=== PATIENT | male | born 1980 | race Caucasian/White ===

== ENCOUNTER 2018-02-25 12:42 | Inpatient (IN) | payer BC ==
[2018-02-25 14:10] VITALS: BMI 25.1
--- NOTE | 2018-02-25 15:32 | HP ---
CIWA Score Nausea/Vomitin-Mild Nausea/No Vomiting Muscle Tremors: 3 Anxiety: 2 Agitation: 0-Normal Activity Paroxysmal Sweats: 2 Orientation: 0-Oriented Tacttile Disturbances: 3-Moderate Itch/Numb/Burn Auditory Disturbances: 0-None Visual Disturbances: 0-None Headache: 3-Moderate CIWA-Ar Total Score: 14 - Admission Criteria OASAS Guidelines: Admission for Medically Managed Detox: Requires at least one of the followin. CIWA greater than 12 2. Seizures within the past 24 hours 3. Delirium tremens within the past 24 hours 4. Hallucinations within the past 24 hours 5. Acute intervention needed for co occurring medical disorder 6. Acute intervention needed for co occurring psychiatric disorder 7. Severe withdrawal that cannot be handled at a lower level of care (continued vomiting, continued diarrhea, abnormal vital signs) requiring intravenous medication and/or fluids 8. Admission ROS S - [facility] Chief Complaint: ETOH WITHDRAWAL SX/COCAINE DEPENDENCE. History of Present Illness: PATIENT PRESENTS FIRST ADMISSION TO [facility]. PATIENT LAST DETOX WAS A FEW MONTHS AGO WHILE INCARCERATED. PATIENT STARTED DRINKING AT AGE 13, DRINKS 2 PINTS DAILY AND LAST DRINK THIS MORNING. STARTED SMOKING CRACK/COCAINE AT AGE 27 , SMOKES 4 GRAMS DAILY, LAST TIME HE SMOKED WAS THIS MORNING. +MARIJUANA USE. PATIENT DENIES SEIZURES, FALLS, BLACKOUTS. PMH INCLUDES TOBACCO USE. DENIES DEPRESSION, ANXIETY, BIPOLAR DISORDER, SCHIZOHRENIA AND ANY SIGNIFICANT PMH. PATIENT DENIES SI/HI AND SUICIDE ATTEMPTS. - Ebola screening Have you traveled outside of the country in the last 21 days: No Have you had contact with anyone from an Ebola affected area: No Have you been sick,other than usual withdrawal symptoms: No Do you have a fever: No - Review of Systems Constitutional: Chills, Night Sweats, Changes in sleep EENT: reports: No Symptoms Reported Respiratory: reports: No Symptoms reported Cardiac: reports: No Symptoms Reported GI: reports: Nausea, Poor Fluid Intake, Abdominal cramping : reports: No Symptoms Reported Musculoskeletal: reports: No Symptoms Reported Integumentary: reports: Erythema, Flushing, Sweating Neuro: reports: Headache, Numbness, Tingling, Tremors Endocrine: reports: No Symptoms Reported Hematology: reports: Easy Bleeding Psychiatric: reports: Orientated x3 Patient History - Patient Medical History Hx Anemia: No Hx Asthma: No Hx Chronic Obstructive Pulmonary Disease (COPD): No Hx Cancer: No Hx Cardiac Disorders: No Hx Congestive Heart Failure: No Hx Hypertension: No Hx Hypercholesterolemia: No Hx Pacemaker: No HX Cerebrovascular Accident: No Hx Seizures: No Hx Dementia: No Hx Diabetes: No Hx Gastrointestinal Disorders: No Hx Liver Disease: No Hx Genitourinary Disorders: No Hx Sexually Transmitted Disorders: No Hx Renal Disease (ESRD): No Hx Thyroid Disease: No Hx Human Immunodeficiency Virus (HIV): No (LAST TEST NEGATIVE, 2017) Hx Hepatitis C: No Hx Depression: No Hx Suicide Attempt: No Hx Bipolar Disorder: No Hx Schizophrenia: No - Patient Surgical History Past Surgical History: No Anesthesia Reaction: No - PPD History Previous Implant?: Yes Documented Results: Positive w/o proof PPD to be Administered?: No - Smoking Cessation Smoking history: Current every day smoker Have you smoked in the past 12 months: Yes Aproximately how many cigarettes per day: 20 Hx Chewing Tobacco Use: No Initiated information on smoking cessation: Yes 'Breaking Loose' booklet given: 02/25/18 - Substance & Tx. History Hx Alcohol Use: Yes Hx Substance Use: Yes Substance Use Type: Alcohol, Cocaine, Marijuana - Substances Abused Alcohol Route: Oral Frequency: Daily Amount used: 2 PINTS Age of first use: 13 Date of Last Use: 02/25/18 Cocaine Route: Inhalation Frequency: Daily Amount used: 4 GRAMS Age of first use: 27 Date of Last Use: 02/25/18 Family Disease History - Family Disease History Family History: Unable to Obtain Admission Physical Exam BHS - Vital Signs Vital Signs: Vital Signs - 24 hr 02/25/18 14:00 Temperature 97.7 F Pulse Rate 84 Respiratory 20 Rate Blood Pressure 114/67 - Physical General Appearance: Yes: Nourished, Appropriately Dressed, Disheveled, Tremorous , Sweating HEENTM: Yes: EOMI, Hearing grossly Normal, Normocephalic, Normal Voice, OSMIN, Pharynx Normal Respiratory: Yes: Chest Non-Tender, Lungs Clear, Normal Breath Sounds, No Respiratory Distress, No Accessory Muscle Use Neck: Yes: No masses,lesions,Nodules, Supple, Trachea in good position Breast: Yes: Breast Exam Deferred Cardiology: Yes: Regular Rhythm, Regular Rate, S1, S2 Abdominal: Yes: Normal Bowel Sounds, Non Tender, Soft Genitourinary: Yes: Within Normal Limits Back: Yes: Normal Inspection Musculoskeletal: Yes: full range of Motion, Gait Steady Extremities: Yes: Normal Inspection, Normal Range of Motion, Non-Tender, Tremors 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 NML intact, Fully Oriented, Alert, Motor Strength 5/5, Normal Mood/Affect, Normal Response Integumentary: Yes: Warm, Erythema, Moist Lymphatic: Yes: Within Normal Limits - Diagnostic (1) Alcohol dependence with uncomplicated withdrawal Current Visit: Yes Status: Acute (2) Tobacco use Current Visit: Yes Status: Chronic (3) Cocaine dependence Current Visit: Yes Status: Chronic Qualifiers: Substance use status: uncomplicated Qualified Code(s): F14.20 - Cocaine dependence, uncomplicated Cleared for Admission [facility] - Detox or Rehab [facility] Level of Care: Medically Managed Detox Regimen/Protocol: Librium [facility] Breath Alcohol Content Breath Alcohol Content: 0 Urine Drug Screen - Results Drug Screen Negative: No Urine Drug Screen Results: THC-Marijuana, JONI-Cocaine, BAR-Barbiturates
[2018-02-25] MEDS ORDERED: P-EPHED 60MG/TRIPROLIDI 2.5MG TABLET PO PRN (15:43)
[2018-02-25] MEDS ORDERED: IBUPROFEN 400 MG TABLET (FP) PO PRN (15:43)
[2018-02-25] MEDS ORDERED: MAGNESIUM CITRATE 300 ML BOTTLE PO PRN (15:43)
[2018-02-25] MEDS ORDERED: LOPERAMIDE HCL 2 MG CAPSULE PO PRN (15:43)
[2018-02-25] MEDS ORDERED: ACETAMINOPHEN 325 MG TABLET (FP) PO PRN (15:43)
[2018-02-25] MEDS ORDERED: hydrOXYzine PAMOATE 50 MG CAPSULE (FP) PO PRN (15:43)
[2018-02-25] MEDS ORDERED: MENTHOL/PHENOL 1 EACH UD MM PRN (15:43)
[2018-02-25] MEDS ORDERED: guaiFENesin/D-METHORPHAN HB 10 ML UNIT-DOSE CUPS PO PRN (15:43)
[2018-02-25] MEDS ORDERED: MAG HYDROX/AL HYDROX/SIMETH 30 ML UNIT-DOSE CUP PO PRN (15:43)
[2018-02-25] MEDS ORDERED: MAGNESIUM HYDROX 2400MG/30ML ORAL SUSPENSION 30 ML CUP PO PRN (15:43)
[2018-02-25] MEDS ORDERED: NICOTINE POLACRILEX 2 MG GUM BC PRN (15:43)
[2018-02-25] MEDS ORDERED: chlordiazePOXIDE HCL 25 MG CAPSULE PO PRN (15:46)
[2018-02-25] MEDS ORDERED: chlordiazePOXIDE HCL 25 MG CAPSULE ONE (19:28)
[2018-02-25] MEDS: chlordiazePOXIDE HCL 25 MG CAPSULE PO SCH (19:28)
[2018-02-25] MEDS ORDERED: MELATONIN 5 MG TABLETS PO PRN (22:00)
[2018-02-25] MEDS: THIAMINE HCL 100 MG TABLET (FP) PO SCH (22:52)
[2018-02-26] MEDS: chlordiazePOXIDE HCL 25 MG CAPSULE PO SCH ×5 (00:10→22:15)
[2018-02-26 10:47] LABS: HEMATOCRIT 43.1 % (35.4-49); MCH 33.2 pg (25.7-33.7); MCHC 32.5 g/dl (32.0-35.9); MEAN CELL VOLUME 102.4 fl (80-96); MEAN PLT VOLUME 8.6 fl (7.5-11.1); PLATELET COUNT 192 K/MM3 (134-434); RBC 4.21 M/mm3 (4.00-5.60); RDW 14.2 % (11.9-15.9); WHITE BLOOD COUNT 6.8 K/mm3 (4.0-10.0)
[2018-02-26] MEDS: PRENATAL VITAMINS W/ FOLIC ACID TABLET (FP) PO SCH (10:53)
[2018-02-26] MEDS: NICOTINE 21 MG/24 HOURS TOPICAL PATCH TD SCH (10:53)
--- NOTE | 2018-02-26 11:00 | PN ---
S CIWA - CIWA Score Nausea/Vomitin-No Nausea/No Vomiting Muscle Tremors: 4-Moderate,w/Arms Extend Anxiety: 3 Agitation: 3 Paroxysmal Sweats: 3 Orientation: 0-Oriented Tacttile Disturbances: 0-None Auditory Disturbances: 0-None Visual Disturbances: 0-None Headache: 0-None Present CIWA-Ar Total Score: 13 BHS Progress Note (SOAP) Subjective: sweats shakes interrupted sleep body aches Objective: 02/26/18 11:00 Vital Signs Temperature 97.5 F L 02/26/18 09:08 Pulse Rate 68 02/26/18 09:08 Respiratory Rate 18 02/26/18 09:08 Blood Pressure 112/65 02/26/18 09:08 O2 Sat by Pulse Oximetry (%) Laboratory Tests 02/26/18 07:00 WBC 6.8 RBC 4.21 Hgb 14.0 Hct 43.1 MCV 102.4 H MCH 33.2 MCHC 32.5 RDW 14.2 Plt Count 192 MPV 8.6 rest of labs pending aaox3 ambulating no acute distress Assessment: 02/26/18 11:00 withdrawal sx Plan: continue detox increase fluids labs pending
[2018-02-26 12:04] LABS: ALBUMIN 3.6 g/dl (3.4-5.0); ALK PHOS 72 U/L (45-117); ANION GAP 8 MMOL/L (8-16); BILIRUBIN,TOTAL 0.7 mg/dL (0.2-1); BLOOD UREA NITROGEN 14 mg/dL (7-18); CALCIUM 8.5 mg/dL (8.5-10.1); CHLORIDE 106 mmol/L (98-107); CO2 25 mmol/L (21-32); CREATININE 0.8 mg/dL (0.55-1.3); GLUCOSE,RANDOM 76 mg/dL (74-106); POTASSIUM 4.2 mmol/L (3.5-5.1); SGOT/AST 19 U/L (15-37); SGPT/ALT 21 U/L (13-61); SODIUM 140 mmol/L (136-145); TOT PROT 5.9 g/dl (6.4-8.2)
[2018-02-26] MEDS: THIAMINE HCL 100 MG TABLET (FP) PO SCH (22:15)
[2018-02-27] MEDS: chlordiazePOXIDE HCL 25 MG CAPSULE PO SCH ×2 (05:58→10:17)
[2018-02-27] MEDS: PRENATAL VITAMINS W/ FOLIC ACID TABLET (FP) PO SCH (10:17)
[2018-02-27] MEDS: NICOTINE 21 MG/24 HOURS TOPICAL PATCH TD SCH (10:17)
--- NOTE | 2018-02-27 11:11 | PN ---
S CIWA - CIWA Score Nausea/Vomitin Muscle Tremors: 3 Anxiety: 2 (interrupted sleep,) Agitation: 2 Paroxysmal Sweats: 2 Orientation: 0-Oriented Tacttile Disturbances: 2-Mild Itch/Numbness/Burn Auditory Disturbances: 0-None Visual Disturbances: 0-None Headache: 0-None Present CIWA-Ar Total Score: 13 BHS Progress Note (SOAP) Subjective: interrupted sleep, shakes, upset stomach, Objective: 02/27/18 11:10 Vital Signs Temperature 97.5 F L 02/27/18 09:49 Pulse Rate 70 02/27/18 09:49 Respiratory Rate 18 02/27/18 09:49 Blood Pressure 99/54 L 02/27/18 09:49 O2 Sat by Pulse Oximetry (%) Laboratory Tests 02/26/18 02/26/18 02/26/18 07:00 07:00 07:00 WBC 6.8 RBC 4.21 Hgb 14.0 Hct 43.1 MCV 102.4 H MCH 33.2 MCHC 32.5 RDW 14.2 Plt Count 192 MPV 8.6 Sodium 140 Potassium 4.2 Chloride 106 Carbon Dioxide 25 Anion Gap 8 BUN 14 Creatinine 0.8 Creat Clearance w eGFR > 60 Random Glucose 76 Calcium 8.5 Total Bilirubin 0.7 AST 19 ALT 21 Alkaline Phosphatase 72 Total Protein 5.9 L Albumin 3.6 RPR Titer Nonreactive pt aox3 in nad ambulating Assessment: 02/27/18 11:11 withdrawal sx's Plan: cont. detox increase fluids [place] [facility] .
[2018-02-27] MEDS: chlordiazePOXIDE 5 MG CAPSULE PO SCH ×2 (19:10→22:36)
[2018-02-27] MEDS: THIAMINE HCL 100 MG TABLET (FP) PO SCH (22:36)
[2018-02-28] MEDS: chlordiazePOXIDE 5 MG CAPSULE PO SCH ×3 (06:21→10:50)
[2018-02-28] MEDS: PRENATAL VITAMINS W/ FOLIC ACID TABLET (FP) PO SCH (10:49)
[2018-02-28] MEDS: NICOTINE 21 MG/24 HOURS TOPICAL PATCH TD SCH (10:50)
--- NOTE | 2018-02-28 13:36 | PN ---
BHS Progress Note (SOAP) Subjective: Pt here for alcohol use disorder- says doing well today A: Vital Signs - 24 hr 02/27/18 02/27/18 02/28/18 18:31 22:00 00:30 Temperature 97.5 F L 97.5 F L Pulse Rate 70 80 Respiratory 18 18 18 Rate Blood Pressure 99/54 L 115/75 02/28/18 02/28/18 02/28/18 03:30 06:45 09:43 Temperature 97.9 F Pulse Rate 62 64 Respiratory 18 18 18 Rate Blood Pressure 107/56 L 111/59 L Laboratory Tests 02/26/18 02/26/18 02/26/18 07:00 07:00 07:00 WBC 6.8 RBC 4.21 Hgb 14.0 Hct 43.1 MCV 102.4 H MCH 33.2 MCHC 32.5 RDW 14.2 Plt Count 192 MPV 8.6 Sodium 140 Potassium 4.2 Chloride 106 Carbon Dioxide 25 Anion Gap 8 BUN 14 Creatinine 0.8 Creat Clearance w eGFR > 60 Random Glucose 76 Calcium 8.5 Total Bilirubin 0.7 AST 19 ALT 21 Alkaline Phosphatase 72 Total Protein 5.9 L Albumin 3.6 RPR Titer Nonreactive a/p: AUD- daay #4 of protocol, pt doing well.
[2018-02-28] MEDS: chlordiazePOXIDE HCL 10 MG CAPSULE PO SCH (22:58)
[2018-02-28] MEDS: THIAMINE HCL 100 MG TABLET (FP) PO SCH (22:59)
[2018-03-01] MEDS: chlordiazePOXIDE HCL 10 MG CAPSULE PO SCH ×2 (00:20→06:38)
[2018-03-01 07:14] VITALS: BP 90/50; PULSE 62; TEMP 97.7
--- NOTE | 2018-03-01 08:33 | DS ---
[facility] Detox Discharge Summary Admission Date: 02/25/18 Discharge Date: 03/01/18 - History Present History: Alcohol Dependence Additional Comments: 37 years old male admitted on 02/25/18 for alcohol withdrawal stability completed alcohol detox regimen tolerated well alert no acute distress aftercare [facility] Pertinent Past History: stated that he is ready for aftercare at [facility] toward sobriety - Physical Exam Results Vital Signs: Vital Signs Temperature 97.7 F 03/01/18 03:00 Pulse Rate 62 03/01/18 03:00 Respiratory Rate 18 03/01/18 03:30 Blood Pressure 90/50 L 03/01/18 03:00 O2 Sat by Pulse Oximetry (%) Pertinent Admission Physical Exam Findings: alcohol withdrawal sx Vital Signs Temperature 97.7 F 03/01/18 03:00 Pulse Rate 62 03/01/18 03:00 Respiratory Rate 18 03/01/18 03:30 Blood Pressure 90/50 L 03/01/18 03:00 O2 Sat by Pulse Oximetry (%) Laboratory Last Values WBC 6.8 K/mm3 (4.0-10.0) 02/26/18 07:00 RBC 4.21 M/mm3 (4.00-5.60) 02/26/18 07:00 Hgb 14.0 GM/dL (11.7-16.9) 02/26/18 07:00 Hct 43.1 % (35.4-49) 02/26/18 07:00 MCV 102.4 fl (80-96) H 02/26/18 07:00 MCH 33.2 pg (25.7-33.7) 02/26/18 07:00 MCHC 32.5 g/dl (32.0-35.9) 02/26/18 07:00 RDW 14.2 % (11.9-15.9) 02/26/18 07:00 Plt Count 192 K/MM3 (134-434) 02/26/18 07:00 MPV 8.6 fl (7.5-11.1) 02/26/18 07:00 Sodium 140 mmol/L (136-145) 02/26/18 07:00 Potassium 4.2 mmol/L (3.5-5.1) 02/26/18 07:00 Chloride 106 mmol/L (98-107) 02/26/18 07:00 Carbon Dioxide 25 mmol/L (21-32) 02/26/18 07:00 Anion Gap 8 MMOL/L (8-16) 02/26/18 07:00 BUN 14 mg/dL (7-18) 02/26/18 07:00 Creatinine 0.8 mg/dL (0.55-1.3) 02/26/18 07:00 Creat Clearance w eGFR > 60 (>60) 02/26/18 07:00 Random Glucose 76 mg/dL (74-106) 02/26/18 07:00 Calcium 8.5 mg/dL (8.5-10.1) 02/26/18 07:00 Total Bilirubin 0.7 mg/dL (0.2-1) 02/26/18 07:00 AST 19 U/L (15-37) 02/26/18 07:00 ALT 21 U/L (13-61) 02/26/18 07:00 Alkaline Phosphatase 72 U/L (45-117) 02/26/18 07:00 Total Protein 5.9 g/dl (6.4-8.2) L 02/26/18 07:00 Albumin 3.6 g/dl (3.4-5.0) 02/26/18 07:00 RPR Titer Nonreactive (NONREACTIVE) 02/26/18 07:00 lab noted - Treatment Hospital Course: Detox Protocol Followed, Detoxed Safely, Responded well, Discharged Condition Good, Rehab Referral Accepted Patient has Accepted a Rehab Referral to: [facility] - Medication Discharge Medications: Ambulatory Orders NK [No Known Home Medication] 02/25/18 - Diagnosis (1) Nicotine dependence Current Visit: Yes Status: Acute Qualifiers: Nicotine product type: cigarettes Substance use status: in withdrawal Qualified Code(s): F17.213 - Nicotine dependence, cigarettes, with withdrawal (2) Alcohol dependence with uncomplicated withdrawal Current Visit: Yes Status: Acute - AMA Did Patient Leave Against Medical Advice: No
== END 2018-03-01 09:21 | disposition home or self-care (01) | DRG 774 ==
LOC: YASAS 12:42 → Y6N 17:49
PROC: HZ2ZZZZ Detoxification Services for Substance Abuse Treatment (ICD-10-PCS; principal; 2018-02-25)
DX: F10.230 Alcohol dependence with withdrawal, uncomplicated (principal); F14.20 Cocaine dependence, uncomplicated; F17.213 Nicotine dependence, cigarettes, with withdrawal; Z59.0 Homelessness
CPT/HCPCS: 36415; 71046-TC-FY; 80053; 85027; 86593

== ENCOUNTER 2018-06-29 18:41 | Inpatient (IN) | payer BC ==
[2018-06-29 19:25] VITALS: BMI 25.1
--- NOTE | 2018-06-29 20:45 | HP ---
CIWA Score Nausea/Vomitin-No Nausea/No Vomiting Muscle Tremors: 1-None Visible, but [place] Anxiety: 1-Mildly Anxious Agitation: 1-Slight > Activity Paroxysmal Sweats: 3 Orientation: 2-Disoriented Date<2 days Tacttile Disturbances: 0-None Auditory Disturbances: 0-None Visual Disturbances: 0-None Headache: 3-Moderate CIWA-Ar Total Score: 11 - Admission Criteria OAS Guidelines: Admission for Medically Managed Detox: Requires at least one of the followin. CIWA greater than 12 2. Seizures within the past 24 hours 3. Delirium tremens within the past 24 hours 4. Hallucinations within the past 24 hours 5. Acute intervention needed for co occurring medical disorder 6. Acute intervention needed for co occurring psychiatric disorder 7. Severe withdrawal that cannot be handled at a lower level of care (continued vomiting, continued diarrhea, abnormal vital signs) requiring intravenous medication and/or fluids 8. Patient presents the following: CIWA greater than 12 Admission Criteria Met: Admission criteria met Admission ROS [facility] - [facility] Chief Complaint: C/O WITHDRAWAL SX'S. SEEKING DETOX Allergies/Adverse Reactions: Allergies Allergy/AdvReac Type Severity Reaction Status Date / Time No Known Allergies Allergy Verified 06/29/18 19:18 History of Present Illness: 38 Y.O. MALE WITH ALCOHOLISM HERE FOR DETOX. HE IS KNOWN TO THIS PROGRAM LAST HERE 02/2018. REPORTS RELAPSING IMMEDIATELY AFTER DRINKING DAILY BEER AND LIQUOR. LAST DRINK EARLIER TODAY. PRESENTS NOW WITH C/O WITHDRAWAL SX'S. CIWA 12. DENIES SEIZURES, AVH, DT'S, SI/HI. REPORTS LONGEST CLEAN TIME 1 YEAR SELF MAINTAINED. HOMELESS, UNEMPLOYED, DENIES LEGALS. - Ebola screening Have you traveled outside of the country in the last 21 days: No (N) Have you had contact with anyone from an Ebola affected area: No Do you have a fever: No - Review of Systems Constitutional: Malaise, Changes in sleep EENT: reports: Dental Problems (missing teeth) Respiratory: reports: No Symptoms reported Cardiac: reports: Edema (no pitting edema to ble) GI: reports: Poor Fluid Intake : reports: No Symptoms Reported Musculoskeletal: reports: Other (body aches) Integumentary: reports: Rash (non pruritic rash to trunk and arms x 2 weeks) Neuro: reports: Headache Endocrine: reports: No Symptoms Reported Hematology: reports: No Symptoms Reported Psychiatric: reports: Depressed (declines psych services) Other Systems: Reviewed and Negative Patient History - Patient Medical History Hx Anemia: No Hx Asthma: No Hx Chronic Obstructive Pulmonary Disease (COPD): No Hx Cancer: No Hx Cardiac Disorders: No Hx Congestive Heart Failure: No Hx Hypertension: No Hx Hypercholesterolemia: No Hx Pacemaker: No HX Cerebrovascular Accident: No Hx Seizures: No Hx Dementia: No Hx Diabetes: No Hx Gastrointestinal Disorders: No Hx Liver Disease: No Hx Genitourinary Disorders: No Hx Sexually Transmitted Disorders: No Hx Renal Disease (ESRD): No Hx Thyroid Disease: No Hx Human Immunodeficiency Virus (HIV): No (LAST TEST NEGATIVE, 2017) Hx Hepatitis C: No Hx Depression: No Hx Suicide Attempt: No Hx Bipolar Disorder: No Hx Schizophrenia: No - Patient Surgical History Past Surgical History: No Hx Neurologic Surgery: No Hx Cataract Extraction: No Hx Cardiac Surgery: No Hx Lung Surgery: No Hx Breast Surgery: No Hx Breast Biopsy: No Hx Abdominal Surgery: No Hx Appendectomy: No Hx Cholecystectomy: No Hx Genitourinary Surgery: No Hx Section: No Hx Orthopedic Surgery: No Anesthesia Reaction: No - PPD History Previous Implant?: Yes Documented Results: Negative w/o proof Implanted On Prior [facility] Admission?: Yes Results: 02/2018 neg cxr PPD to be Administered?: No - Smoking Cessation Smoking history: Current every day smoker Have you smoked in the past 12 months: Yes Aproximately how many cigarettes per day: 20 Cigars Per Day: 0 Hx Chewing Tobacco Use: No Initiated information on smoking cessation: Yes 'Breaking Loose' booklet given: 06/29/18 - Substance & Tx. History Hx Alcohol Use: Yes Hx Substance Use: Yes Substance Use Type: Alcohol, Cocaine Hx Substance Use Treatment: Yes ([facility]) - Substances abused Alcohol Substance route: Oral Frequency: Daily Amount used: 1 P[place], 5 BEERS Age of first use: 13 Date of last use: 06/29/18 Cocaine Substance route: Smoking Frequency: Daily Amount used: 1-2 GRAMS Age of first use: 18 Date of last use: 06/28/18 Family Disease History - Family Disease History Family Disease History: Other: Father (alcoholism), Mother ("), Sister (") Admission Physical Exam BHS - Vital Signs Vital Signs: Vital Signs - 24 hr 06/29/18 19:20 Temperature 98.0 F Pulse Rate 94 H Respiratory 18 Rate Blood Pressure 113/69 - Physical General Appearance: Yes: Anxious HEENTM: Yes: EOMI, Normocephalic, Normal Voice, OSMIN, Pharynx Normal, Other ( missing teeth) Respiratory: Yes: Chest Non-Tender, Lungs Clear, Normal Breath Sounds, No Respiratory Distress, No Accessory Muscle Use Neck: Yes: No masses,lesions,Nodules, Supple, Trachea in good position Breast: Yes: Breast Exam Deferred Cardiology: Yes: Regular Rhythm, Regular Rate, S1, S2 Abdominal: Yes: Normal Bowel Sounds, Non Tender, Flat, Soft Genitourinary: Yes: Within Normal Limits Back: Yes: Normal Inspection Musculoskeletal: Yes: full range of Motion, Gait Steady Extremities: Yes: Normal Range of Motion, Non-Tender Neurological: Yes: Alert, Motor Strength 5/5, Depressed Affect ([facility] psych services) Integumentary: Yes: Dry, Warm, Rash (skin rash made up of non pruritic, red flat blotches that flow into one another.localized to chest trunk and arms. client reports non pruritic, present x 2 weeks. Denies fevers, recent illness.Case discussed with [facility]. victor from [facility] will cont to observe and have client f/u outpatient) Lymphatic: Yes: Within Normal Limits - Diagnostic (1) At risk for dehydration due to poor fluid intake Status: Acute (2) Alcohol dependence with uncomplicated withdrawal Status: Acute (3) Nicotine dependence Status: Chronic Qualifiers: Nicotine product type: cigarettes Substance use status: in withdrawal Qualified Code(s): F17.213 - Nicotine dependence, cigarettes, with withdrawal (4) Cocaine dependence Status: Chronic Qualifiers: Substance use status: uncomplicated Qualified Code(s): F14.20 - Cocaine dependence, uncomplicated (5) History of positive PPD Status: Chronic (6) Rash Status: Acute Cleared for Admission S - Detox or Rehab [facility] Level of Care: Medically Managed Detox Regimen/Protocol: Librium Claeared for Rehab Admission: No Breathalyzer - Breathalyzer Breathalyzer: 0 Urine Drug Screen - Test Device Lot number: [id number] Expiration date: 02/14/20 - Control Is test valid?: Yes - Results Drug screen NEGATIVE: No Urine drug screen results: THC-Marijuana, JONI-Cocaine, MET-Methamphetamine, AMP- Amphetamines Inpatient Rehab Admission - Rehab Decision to Admit Inpatient rehab admission?: No
[2018-06-29] MEDS ORDERED: MAGNESIUM CITRATE 300 ML BOTTLE PO PRN (20:50)
[2018-06-29] MEDS ORDERED: MENTHOL/PHENOL 1 EACH UD MM PRN (20:50)
[2018-06-29] MEDS ORDERED: ONDANSETRON *ODT* 4 MG TABLET SL PRN (20:50)
[2018-06-29] MEDS ORDERED: IBUPROFEN 400 MG TABLET (FP) PO PRN ×2 (20:50)
[2018-06-29] MEDS ORDERED: NICOTINE POLACRILEX 2 MG GUM BUC PRN (20:50)
[2018-06-29] MEDS ORDERED: ACETAMINOPHEN 325 MG TABLET (FP) PO PRN ×2 (20:50)
[2018-06-29] MEDS ORDERED: MAGNESIUM HYDROX 2400MG/30ML ORAL SUSPENSION 30 ML CUP PO PRN (20:50)
[2018-06-29] MEDS ORDERED: MAG HYDROX/AL HYDROX/SIMETH 30 ML UNIT-DOSE CUP PO PRN (20:50)
[2018-06-29] MEDS ORDERED: hydrOXYzine PAMOATE 25 MG CAPSULE (FP) PO PRN (20:50)
[2018-06-29] MEDS ORDERED: guaiFENesin 200 MG/10 ML 10 ML UNIT-DOSE CUPS PO PRN (20:50)
[2018-06-29] MEDS ORDERED: P-EPHED 60MG/TRIPROLIDI 2.5MG TABLET PO PRN (20:50)
[2018-06-29] MEDS ORDERED: chlordiazePOXIDE HCL 10 MG CAPSULE PO PRN (20:50)
[2018-06-29] MEDS ORDERED: BISMUTH SUBSALICYLATE 524 MG/30 ML UD PO PRN (20:50)
[2018-06-29] MEDS ORDERED: METHOCARBAMOL 500 MG TABLET PO PRN (20:50)
[2018-06-29] MEDS: chlordiazePOXIDE HCL 25 MG CAPSULE PO SCH (22:27)
[2018-06-29] MEDS: THIAMINE HCL 100 MG TABLET (FP) PO SCH (22:27)
[2018-06-29] MEDS: MELATONIN 5 MG TABLETS PO PRN (22:28)
[2018-06-30] MEDS: chlordiazePOXIDE HCL 25 MG CAPSULE PO SCH ×2 (07:18→14:08)
[2018-06-30 10:09] LABS: ALBUMIN 2.5 g/dl (3.4-5.0); ALK PHOS 427 U/L (45-117); ANION GAP 5 MMOL/L (8-16); BILIRUBIN,TOTAL 0.7 mg/dL (0.2-1); BLOOD UREA NITROGEN 9 mg/dL (7-18); CHLORIDE 102 mmol/L (98-107); CO2 28 mmol/L (21-32); CREATININE 0.8 mg/dL (0.55-1.3); GLUCOSE,RANDOM 105 mg/dL (74-106); POTASSIUM 4.5 mmol/L (3.5-5.1); SGOT/AST 30 U/L (15-37); SGPT/ALT 51 U/L (13-61); SODIUM 135 mmol/L (136-145); TOT PROT 6.8 g/dl (6.4-8.2)
[2018-06-30] MEDS: NICOTINE 21 MG/24 HOURS TOPICAL PATCH TD SCH (10:09)
[2018-06-30] MEDS: PRENATAL VITAMINS W/ FOLIC ACID TABLET (FP) PO SCH (10:10)
[2018-06-30 10:11] LABS: HEMOGLOBIN 12.9 GM/dL (11.7-16.9); MCH 32.1 pg (25.7-33.7); MEAN CELL VOLUME 94.4 fl (80-96); MEAN PLT VOLUME 8.2 fl (7.5-11.1); PLATELET COUNT 284 K/MM3 (134-434); RBC 4.02 M/mm3 (4.00-5.60); RDW 14.4 % (11.9-15.9); WHITE BLOOD COUNT 7.1 K/mm3 (4.0-10.0)
--- NOTE | 2018-06-30 12:13 | PN ---
S CIWA - CIWA Score Nausea/Vomitin-No Nausea/No Vomiting Muscle Tremors: 3 Anxiety: 2 Agitation: 0-Normal Activity Paroxysmal Sweats: 3 Orientation: 0-Oriented Tacttile Disturbances: 2-Mild Itch/Numbness/Burn Auditory Disturbances: 0-None Visual Disturbances: 2-Mild Sensitivity Headache: 3-Moderate CIWA-Ar Total Score: 15 S Progress Note (SOAP) Subjective: Sweating, Tremors, H/A, Anxious. Objective: PATIENT A & O X 3, OBSERVED AMBULATING ON UNIT. IN NO ACUTE DISTRESS. 06/30/18 12:14 Vital Signs Temperature 99.0 F 06/30/18 09:13 Pulse Rate 88 06/30/18 09:13 Respiratory Rate 18 06/30/18 09:13 Blood Pressure 120/64 06/30/18 09:13 O2 Sat by Pulse Oximetry (%) Laboratory Tests 06/30/18 06/30/18 07:00 07:00 WBC 7.1 RBC 4.02 Hgb 12.9 Hct 38.0 MCV 94.4 MCH 32.1 MCHC 34.0 RDW 14.4 Plt Count 284 D MPV 8.2 Sodium 135 L Potassium 4.5 Chloride 102 Carbon Dioxide 28 Anion Gap 5 L BUN 9 Creatinine 0.8 Creat Clearance w eGFR 108.19 Random Glucose 105 Calcium 8.0 L Total Bilirubin 0.7 AST 30 ALT 51 Alkaline Phosphatase 427 H Total Protein 6.8 Albumin 2.5 L LABS NOTED. Assessment: 06/30/18 12:16 WITHDRAWAL SYMPTOMS. ELEVATED ALKALINE PHOSPHATASE LEVEL. HYPOCALCEMIA. Plan: WITHDRAWAL SYMPTOMS. OSCAL, 500 MG PO BID. REPEAT ALKALINE PHOSPHATASE LEVEL TOMORROW AM FOR ELEVATED ADMISSION LEVEL.
[2018-06-30 13:26] LABS: EPI CELLS 0.7 /HPF (0-5/HPF); PH,URINE 5.5 (5.0-8.0); URINE APPEARANCE TURBID; URINE BACTERIA 5.7 /hpf (NEGATIVE); URINE BILIRUBIN 1+ (NEGATIVE); URINE CASTS 3 /lpf (0-8); URINE COLOR DK YELLOW; URINE GLUCOSE (UA) NEGATIVE (NEGATIVE); URINE KETONE TRACE (NEGATIVE); URINE LEUK ESTERASE TRACE (NEGATIVE); URINE NITRITE POSITIVE (NEGATIVE); URINE PROTEIN 1+ (NEGATIVE); URINE RBC 3 /hpf (0-4); URINE WBC 1 /hpf (0-5)
[2018-06-30 14:00] LABS: URINE CRYSTALS CALCIUM OXALATE /hpf
[2018-06-30] MEDS: CALCIUM 500MG/VIT-D 200 UNITS COMBO TABLET (FP) PO SCH ×2 (14:08→23:00)
--- NOTE | 2018-06-30 15:38 | PN ---
[facility] Progress Note Note: Patient Denies known history of Liver disease. Repeat Alkaline Phosphastase Level ordered for Tomorrow AM. Skin condition (initially reported on admission H &P Assessment) noted. Generalized Erythema with small scattered localized areas of darker erythema noted on patient's chest, abdomen, and on Bilateral Arms. Patient reports that condition started approx. 2 weeks ago with no easily identifiable cause. Patient denies and sensation of Pruritus or of Discomfort at affected sites. Patient denies any history of similar occurrence in past. Patient denies any known recent contact with unusual surfaces, recent change in detergent, etc. Patient deos note that he believes erythema on skin to be "fading" over the last couple of days. Will continue to monitor. Repeat UA ordered for Admission UA abnormalities. No Urinary Complaints (Burning , Pain, Frequency) Offered by Patient During Today's AM Daily Rounds Assessment. Cheikh Sierra NP
[2018-06-30] MEDS: THIAMINE HCL 100 MG TABLET (FP) PO SCH (23:00)
[2018-06-30] MEDS: chlordiazePOXIDE 5 MG CAPSULE PO SCH (23:00)
[2018-07-01] MEDS: chlordiazePOXIDE 5 MG CAPSULE PO SCH ×2 (06:47→12:31)
[2018-07-01] MEDS: NICOTINE 21 MG/24 HOURS TOPICAL PATCH TD SCH (09:49)
[2018-07-01] MEDS: CALCIUM 500MG/VIT-D 200 UNITS COMBO TABLET (FP) PO SCH ×2 (09:50→22:23)
[2018-07-01] MEDS: PRENATAL VITAMINS W/ FOLIC ACID TABLET (FP) PO SCH (09:50)
--- NOTE | 2018-07-01 10:18 | PN ---
[facility] CIWA - CIWA Score Nausea/Vomitin-No Nausea/No Vomiting Muscle Tremors: 3 Anxiety: 3 Agitation: 3 Paroxysmal Sweats: 3 Orientation: 0-Oriented Tacttile Disturbances: 0-None Auditory Disturbances: 0-None Visual Disturbances: 0-None Headache: 0-None Present CIWA-Ar Total Score: 12 S Progress Note (SOAP) Subjective: rash to torso and hands,arms but no itch sweats interrupted sleep Objective: 07/01/18 10:15 Vital Signs Temperature 97.8 F 07/01/18 09:34 Pulse Rate 75 07/01/18 09:34 Respiratory Rate 18 07/01/18 09:34 Blood Pressure 129/80 07/01/18 09:34 O2 Sat by Pulse Oximetry (%) Laboratory Tests 06/30/18 06/30/18 06/30/18 00:00 07:00 07:00 WBC 7.1 RBC 4.02 Hgb 12.9 Hct 38.0 MCV 94.4 MCH 32.1 MCHC 34.0 RDW 14.4 Plt Count 284 D MPV 8.2 Sodium 135 L Potassium 4.5 Chloride 102 Carbon Dioxide 28 Anion Gap 5 L BUN 9 Creatinine 0.8 Creat Clearance w eGFR 108.19 Random Glucose 105 Calcium 8.0 L Total Bilirubin 0.7 AST 30 ALT 51 Alkaline Phosphatase 427 H Total Protein 6.8 Albumin 2.5 L Urine Color Dk yellow Urine Appearance Turbid Urine pH 5.5 Ur Specific [place] 1.028 Urine Protein 1+ H Urine Glucose (UA) Negative Urine Ketones Trace H Urine Blood Negative Urine Nitrite Positive H Urine Bilirubin 1+ H Urine Urobilinogen 1.0 Ur Leukocyte Esterase Trace Urine WBC (Auto) 1 Urine RBC (Auto) 3 Urine Casts (Auto) 3 U Epithel Cells (Auto) 0.7 Urine Crystals (Auto) Calcium oxalate Urine Bacteria (Auto) 5.7 RPR Titer 06/30/18 07:00 WBC RBC Hgb Hct MCV MCH MCHC RDW Plt Count MPV Sodium Potassium Chloride Carbon Dioxide Anion Gap BUN Creatinine Creat Clearance w eGFR Random Glucose Calcium Total Bilirubin AST ALT Alkaline Phosphatase Total Protein Albumin Urine Color Urine Appearance Urine pH Ur Specific [place] Urine Protein Urine Glucose (UA) Urine Ketones Urine Blood Urine Nitrite Urine Bilirubin Urine Urobilinogen Ur Leukocyte Esterase Urine WBC (Auto) Urine RBC (Auto) Urine Casts (Auto) U Epithel Cells (Auto) Urine Crystals (Auto) Urine Bacteria (Auto) RPR Titer Reactive 1:128 H D labs noted spoke to lab coordinator at [facility] to confirm the RPR is in fact 1:128. this result coincides with pt secondary rash to syphilis Pen G juan 2.4 million injection x one ordered now pt was made aware of the importance and need to get two more injections and to let his partner know she will also need to get treated. Assessment: 07/01/18 10:18 withdrawal sx Plan: continue detox increase fluids Pen G Benzathine 2.4million injx1 ordered.
[2018-07-01] MEDS ORDERED: PENICILLIN G BENZATHINE 2,400,000 UNIT/4 ML PFS IM ONE (10:30)
[2018-07-01 12:22] LABS: TREPONEMA ANTIBODY REACTIVE (NONREACTIVE)
[2018-07-01 14:08] LABS: URINE APPEARANCE CLEAR; URINE BILIRUBIN NEGATIVE (NEGATIVE); URINE COLOR YELLOW; URINE GLUCOSE (UA) NEGATIVE (NEGATIVE); URINE KETONE NEGATIVE (NEGATIVE); URINE LEUK ESTERASE NEGATIVE (NEGATIVE); URINE NITRITE NEGATIVE (NEGATIVE); URINE PROTEIN NEGATIVE (NEGATIVE)
[2018-07-01] MEDS ORDERED: chlordiazePOXIDE HCL 10 MG CAPSULE PO PRN (21:00)
[2018-07-01] MEDS: chlordiazePOXIDE HCL 10 MG CAPSULE PO SCH (21:23)
[2018-07-01] MEDS: THIAMINE HCL 100 MG TABLET (FP) PO SCH (21:24)
[2018-07-01] MEDS: MELATONIN 5 MG TABLETS PO PRN (21:24)
[2018-07-02] MEDS: chlordiazePOXIDE HCL 10 MG CAPSULE PO SCH ×3 (06:48→23:16)
[2018-07-02] MEDS: PRENATAL VITAMINS W/ FOLIC ACID TABLET (FP) PO SCH (11:21)
[2018-07-02] MEDS: CALCIUM 500MG/VIT-D 200 UNITS COMBO TABLET (FP) PO SCH ×2 (11:21→23:16)
[2018-07-02] MEDS: NICOTINE 21 MG/24 HOURS TOPICAL PATCH TD SCH (11:21)
--- NOTE | 2018-07-02 13:52 | PN ---
S CIWA - CIWA Score Nausea/Vomitin-No Nausea/No Vomiting Muscle Tremors: None Anxiety: 3 Agitation: 0-Normal Activity Paroxysmal Sweats: 2 Orientation: 0-Oriented Tacttile Disturbances: 0-None Auditory Disturbances: 0-None Visual Disturbances: 1-Very Mild Sensitivity Headache: 0-None Present CIWA-Ar Total Score: 6 BHS Progress Note (SOAP) Subjective: Sweating, Anxious. Patient Reports that Withdrawal / Detox Symptoms have subsided considerably in degree since Time of his Detox admission. Objective: PATIENT A & O X 3, OBSERVED AMBULATING ON UNIT. IN NO ACUTE DISTRESS. 07/02/18 13:47 Vital Signs Temperature 97 F L 07/02/18 06:23 Pulse Rate 89 07/02/18 06:23 Respiratory Rate 18 07/02/18 06:23 Blood Pressure 126/70 07/02/18 06:23 O2 Sat by Pulse Oximetry (%) Laboratory Tests 06/30/18 06/30/18 06/30/18 00:00 07:00 07:00 WBC 7.1 RBC 4.02 Hgb 12.9 Hct 38.0 MCV 94.4 MCH 32.1 MCHC 34.0 RDW 14.4 Plt Count 284 D MPV 8.2 Sodium 135 L Potassium 4.5 Chloride 102 Carbon Dioxide 28 Anion Gap 5 L BUN 9 Creatinine 0.8 Creat Clearance w eGFR 108.19 Random Glucose 105 Calcium 8.0 L Total Bilirubin 0.7 AST 30 ALT 51 Alkaline Phosphatase 427 H Total Protein 6.8 Albumin 2.5 L Urine Color Dk yellow Urine Appearance Turbid Urine pH 5.5 Ur Specific [place] 1.028 Urine Protein 1+ H Urine Glucose (UA) Negative Urine Ketones Trace H Urine Blood Negative Urine Nitrite Positive H Urine Bilirubin 1+ H Urine Urobilinogen 1.0 Ur Leukocyte Esterase Trace Urine WBC (Auto) 1 Urine RBC (Auto) 3 Urine Casts (Auto) 3 U Epithel Cells (Auto) 0.7 Urine Crystals (Auto) Calcium oxalate Urine Bacteria (Auto) 5.7 RPR Titer T.pallidum Ab (A) 06/30/18 07/01/18 07/01/18 07:00 07:00 07:00 WBC RBC Hgb Hct MCV MCH MCHC RDW Plt Count MPV Sodium Potassium Chloride Carbon Dioxide Anion Gap BUN Creatinine Creat Clearance w eGFR Random Glucose Calcium Total Bilirubin AST ALT Alkaline Phosphatase 409 H Total Protein Albumin Urine Color Yellow Urine Appearance Clear Urine pH 7.0 D Ur Specific [place] 1.011 Urine Protein Negative Urine Glucose (UA) Negative Urine Ketones Negative Urine Blood Negative Urine Nitrite Negative Urine Bilirubin Negative Urine Urobilinogen 1.0 Ur Leukocyte Esterase Negative Urine WBC (Auto) Urine RBC (Auto) Urine Casts (Auto) U Epithel Cells (Auto) Urine Crystals (Auto) Urine Bacteria (Auto) RPR Titer Reactive 1:128 H D T.pallidum Ab (MHA) Reactive LABS NOTED. RESULTS OF REPEAT UA AND AP NOTED. RASH PREVIOUSLY NOTED ON PATIENT'S TORSO AND ARMS APPEARS TO FADING SLIGHTLY AND APPEARS TO BE LESS ERYTHEMATOUS THAN IT DID A COUPLE OF DAYS AGO. PATIENT DENIES PRURITUS OR DISCOMFORT AT AFFECTED RASH SITES. 07/02/18 13:49 Assessment: 07/02/18 13:49 WITHDRAWAL SYMPTOMS. REACTIVE RPR. Plan: CONTINUE DETOX. INCREASE DAILY PO FLUID / WATER INTAKE. CONTINUE OSCAL. PATIENT HAD FIRST DOSE OF BICILLIN YESTERDAY FOR REACTIVE RPR RESULT. PATIENT SCHEDULED TO GO TO [facility] ([place], [place]) TOMORROW AM. PATIENT ADVISED TO NOTIFY MEDICAL STAFF AT [facility] UPON HIS ARRIVAL THERE OF THE NEED TO HAVE SUBSEQUENT INSTALLMENTS OF BICILLIN AT APPROPRIATE INTERVALS. PATIENT ALSO ADVISED TO FOLLOW-UP WITH [facility] ([place], [place]) AFTER DISCHARGE FROM REHAB FOR GENERAL MEDICAL ASSESSMENT AND FOR FURTHER EVALUATION OF REACTIVE RPR. PATIENT VERBALIZED UNDERSTANDING OF ALL RECOMMENDATIONS. COPIES OF RESULTS OF ALL LABS DRAWN WHILE ADMITTED FOR DETOX, INCLUDING REACTIVE RPR RESULT, WILL BE GIVEN TO PATIENT AT TIME OF DISCHARGE FROM DETOX UNIT. VERIFICATION OF ORDER FOR FIRST DOSE OF BICILLIN WILL ALSO BE GIVEN TO PATIENT TO TAKE WITH HIM TO [facility].
[2018-07-02] MEDS: THIAMINE HCL 100 MG TABLET (FP) PO SCH (23:16)
[2018-07-03 06:48] VITALS: BP 134/78; PULSE 88; TEMP 97.7
--- NOTE | 2018-07-03 09:03 | DS ---
[facility] Detox Discharge Summary Admission Date: 06/29/18 Discharge Date: 07/03/18 - History Present History: Alcohol Dependence, Cocaine Dependence Additional Comments: PATIENT MEDICALLY STABLE. FOLLOW UP AT [facility] FOR REHABILITATION. PATIENT TO CONTINUE SUBSEQUENT INSTALLMENTS OF BICILLIN AT AT [facility]. FOLLOW-UP WITH [facility] ([place], [place]) AFTER DISCHARGE FROM REHAB FOR GENERAL MEDICAL ASSESSMENT AND FOR FURTHER EVALUATION. IF WORSENING SYMPTOMS ARE PRESENT SEEK MEDICAL ATTENTION. - Physical Exam Results Vital Signs: Vital Signs Temperature 97.7 F 07/03/18 06:00 Pulse Rate 88 07/03/18 06:00 Respiratory Rate 18 07/03/18 06:00 Blood Pressure 134/78 07/03/18 06:00 O2 Sat by Pulse Oximetry (%) - Treatment Hospital Course: Detox Protocol Followed, Detoxed Safely, Responded well, Discharged Condition Good, Rehab Referral Accepted Patient has Accepted a Rehab Referral to: [facility] - Medication Discharge Medications: Ambulatory Orders NK [No Known Home Medication] 02/25/18 - Diagnosis (1) Alcohol dependence with uncomplicated withdrawal Status: Acute (2) At risk for dehydration due to poor fluid intake Status: Acute (3) Positive RPR test Status: Acute (4) Cocaine dependence Status: Chronic Qualifiers: Substance use status: uncomplicated Qualified Code(s): F14.20 - Cocaine dependence, uncomplicated (5) History of positive PPD Status: Chronic (6) Nicotine dependence Status: Chronic Qualifiers: Nicotine product type: cigarettes Substance use status: in withdrawal Qualified Code(s): F17.213 - Nicotine dependence, cigarettes, with withdrawal - AMA Did Patient Leave Against Medical Advice: No
== END 2018-07-03 08:05 | disposition home or self-care (01) | DRG 774 ==
LOC: YASAS 18:41 → Y6N 21:22
PROVIDERS: ADMIT Surgery; ATTEND Surgery
PROC: HZ2ZZZZ Detoxification Services for Substance Abuse Treatment (ICD-10-PCS; principal; 2018-06-29)
DX: F10.230 Alcohol dependence with withdrawal, uncomplicated (principal); F14.20 Cocaine dependence, uncomplicated; F17.213 Nicotine dependence, cigarettes, with withdrawal; R74.8 Abnormal levels of other serum enzymes; R63.8 Other symptoms and signs concerning food and fluid intake; R76.8 Other specified abnormal immunological findings in serum; R76.11 Nonspecific reaction to tuberculin skin test without active tuberculosis; R21 Rash and other nonspecific skin eruption; E83.51 Hypocalcemia; Z59.0 Homelessness
CPT/HCPCS: 36415; 80053; 81003; 84075; 85027; 86593; 86780

== ENCOUNTER 2018-09-28 16:28 | Inpatient (IN) | payer BC ==
[2018-09-28 22:23] VITALS: BMI 25.1
--- NOTE | 2018-09-28 23:48 | HP ---
COWS - Scale Resting Pulse: 0= [place] 80 or Below Sweatin=Flushed/Facial Moisture Restless Observation: 1= Difficult to Sit Still Pupil Size: 0= Normal to Room Light Bone or Joint Aches: 0= None Runny Nose/ Eye Tearin= None GI Upset > 30mins: 2= Nausea/Diarrhea (No diarrhea) Tremor Observation: 2= Slight Tremor Visible Yawning Observation: 0= None Anxiety or Irritability: 1=Feels Anxious/Irritable Goose Flesh Skin: 0=Smooth Skin COWS Score: 8 CIWA Score Nausea/Vomitin Muscle Tremors: 4-Moderate,w/Arms Extend Anxiety: 3 Agitation: 3 Paroxysmal Sweats: 3 (Increased facial moisture) Orientation: 1-Uncertain about Date Tacttile Disturbances: 1-Very Mild Itch/Numbness Auditory Disturbances: 0-None Visual Disturbances: 0-None Headache: 0-None Present CIWA-Ar Total Score: 18 - Admission Criteria [facility] Guidelines: Admission for Medically Managed Detox: Requires at least one of the followin. CIWA greater than 12 2. Seizures within the past 24 hours 3. Delirium tremens within the past 24 hours 4. Hallucinations within the past 24 hours 5. Acute intervention needed for co occurring medical disorder 6. Acute intervention needed for co occurring psychiatric disorder 7. Severe withdrawal that cannot be handled at a lower level of care (continued vomiting, continued diarrhea, abnormal vital signs) requiring intravenous medication and/or fluids 8. Patient presents the following: CIWA greater than 12 Admission Criteria Met: Admission criteria met Admission ROS [facility] Chief Complaint: Having alcohol withdrawal. Allergies/Adverse Reactions: Allergies Allergy/AdvReac Type Severity Reaction Status Date / Time No Known Allergies Allergy Verified 09/28/18 22:20 History of Present Illness: 38 yo presents w/ alcohol withdrawal symptoms and seeking detox. Poly- substance use has increased since last admission in June 2018. Stayed sober for 1 month post discharge. Alcohol use since age 13. Current use since July. Cocaine use since age 18. Current use since July. Marijuana use since age 18. Daily use. Crystal Meth use since age 38 x past 3 months. Opiates use since age 38 x 1 week. State took percocet 30 mg orally for a couple of days. Last took 09/27/18 Nicotine use since age [age]. Current use is 1 PPD. Declines nicotine patch. Will accept gum. Denies seizures or blackouts. Overdosed on ETOH 15 years ago. PMHx:Denies significant PMH. MHHx: Occ mild depression. Denies thoughts of harming self or others. [facility]. Search Terms: Judah Brennan, 1980 Search Date: 09/28/2018 11:41:36 PM The Drug Utilization Report below displays all of the controlled substance prescriptions, if any, that your patient has filled in the last twelve months. The information displayed on this report is compiled from pharmacy submissions to the Department, and accurately reflects the information as submitted by the pharmacies. This report was requested by: Erin Dobson | Reference #: [id number] There are no results for the search terms that you entered. Search Terms: Judah Brennan, 1980 Search Date: 09/28/2018 11:42:09 PM States Searched: [place], [place], [place], [place], [place], [place], [place] The Drug Utilization Report below displays the controlled substance prescriptions, if any, that were dispensed in the indicated state(s). The information displayed on this report is compiled from requests submitted to other states' PMPs, and accurately reflects the information as returned by them. Blank grace indicate data not provided by other state. This report was requested by: Erin Dobson | Reference #: [id number] Exam Limitations: No Limitations - Ebola screening Have you traveled outside of the country in the last 21 days: No (N) Have you had contact with anyone from an Ebola affected area: No Have you been sick,other than usual withdrawal symptoms: No (Denies recent exposure to measles) Do you have a fever: No - Review of Systems Constitutional: Chills, Diaphoresis (Increased facial moisture) EENT: reports: Dental Problems (Broken tooth. Able to chew and swallow ok) Respiratory: reports: No Symptoms reported Cardiac: reports: No Symptoms Reported GI: reports: Nausea, Indigestion (acid reflux - controlled by diet) : reports: No Symptoms Reported Musculoskeletal: reports: Muscle Pain (Generalized muscle pain x 1 day) Integumentary: reports: No Symptoms Reported Neuro: reports: Tremors Endocrine: reports: Increased Thirst Hematology: reports: No Symptoms Reported Psychiatric: reports: Judgement Intact, Agitated, Anxious, Depressed (Mild. Denies thoughts of harming self or others.) Patient History - Patient Medical History Hx Anemia: No Hx Asthma: No Hx Chronic Obstructive Pulmonary Disease (COPD): No Hx Cancer: No Hx Cardiac Disorders: No Hx Congestive Heart Failure: No Hx Hypertension: No Hx Hypercholesterolemia: No Hx Pacemaker: No HX Cerebrovascular Accident: No Hx Seizures: No Hx Dementia: No Hx Diabetes: No Hx Gastrointestinal Disorders: No Hx Liver Disease: No Hx Genitourinary Disorders: No Hx Sexually Transmitted Disorders: No Hx Renal Disease (ESRD): No Hx Thyroid Disease: No Hx Human Immunodeficiency Virus (HIV): No (LAST TEST NEGATIVE, 2017) Hx Hepatitis C: No Hx Depression: No Hx Suicide Attempt: No Hx Bipolar Disorder: No Hx Schizophrenia: No - Patient Surgical History Past Surgical History: No Hx Neurologic Surgery: No Hx Cataract Extraction: No Hx Cardiac Surgery: No Hx Lung Surgery: No Hx Breast Surgery: No Hx Breast Biopsy: No Hx Abdominal Surgery: No Hx Appendectomy: No Hx Cholecystectomy: No Hx Genitourinary Surgery: No Hx Section: No Hx Orthopedic Surgery: No Anesthesia Reaction: No - PPD History Previous Implant?: No Documented Results: Positive w/o proof Implanted On Prior [facility] Admission?: No Results: 02/2018 neg cxr PPD to be Administered?: No - Smoking Cessation Smoking history: Current every day smoker Have you smoked in the past 12 months: Yes Aproximately how many cigarettes per day: 20 Cigars Per Day: 0 Hx Chewing Tobacco Use: No Initiated information on smoking cessation: Yes 'Breaking Loose' booklet given: 09/29/18 - Substance & Tx. History Hx Alcohol Use: Yes Hx Substance Use: Yes Substance Use Type: Alcohol, Cocaine, Marijuana, Tranquilizers (methamphetamines ) Hx Substance Use Treatment: Yes (detox, rehab) - Substances abused Alcohol Substance route: Oral Frequency: Daily Amount used: 1 P[place], 5 BEERS Age of first use: 13 Date of last use: 09/28/18 Cocaine Substance route: Smoking Frequency: Daily Amount used: 1-2 GRAMS Age of first use: 18 Date of last use: 09/28/18 Family Disease History - Family Disease History Family Disease History: Other: Father (alcoholism), Mother ("), Sister (") Admission Physical Exam BHS - Vital Signs Vital Signs: Vital Signs - 24 hr 09/28/18 09/28/18 22:15 22:41 Temperature 98.0 F 98.0 F Pulse Rate 69 69 Respiratory 18 18 Rate Blood Pressure 116/74 116/74 - Physical General Appearance: Yes: Nourished, Mild Distress, Tremorous (Slight tremors of hands w/ arm extension), Sweating (Increased facial moisture), Anxious HEENTM: Yes: EOMI (Jerking movement of eyes on lateral gaze), Hearing grossly Normal, Normocephalic, Normal Voice, OSMIN (Pupils = 3 mm), Pharynx Normal Respiratory: Yes: Lungs Clear, Normal Breath Sounds, No Respiratory Distress Neck: Yes: No masses,lesions,Nodules, Supple Breast: Yes: Breast Exam Deferred Cardiology: Yes: Regular Rate, S1, S2, Irregular Abdominal: Yes: Non Tender, Flat, Soft, Increased Bowel Sounds Genitourinary: Yes: Within Normal Limits Back: Yes: Normal Inspection Musculoskeletal: Yes: full range of Motion, Gait Steady Extremities: Yes: Normal Capillary Refill, Tremors (Slight tremors of hands w/ arm extension), Pedal Edema (Mild edema of dorsal area of feet. Pedal pulses (+) ) Neurological: Yes: tub tender II-XII NML intact (Jerking movement of eyes on lateral gaze), Alert, Motor Strength 5/5, Normal Response Integumentary: Yes: Normal Color, Warm, Diaphoresis (Increased facial moisture) Lymphatic: Yes: Within Normal Limits - Diagnostic (1) History of syphilis Current Visit: Yes Status: Chronic (2) Methamphetamine dependence, continuous Current Visit: Yes Status: Chronic (3) Cannabis dependence, uncomplicated Current Visit: Yes Status: Chronic (4) Opiate abuse, episodic Current Visit: Yes Status: Acute (5) Alcohol dependence with uncomplicated withdrawal Current Visit: Yes Status: Acute (6) At risk for dehydration due to poor fluid intake Current Visit: Yes Status: Chronic (7) Cocaine dependence Current Visit: Yes Status: Chronic Qualifiers: Substance use status: uncomplicated Qualified Code(s): F14.20 - Cocaine dependence, uncomplicated (8) History of positive PPD Current Visit: Yes Status: Chronic (9) Nicotine dependence Current Visit: Yes Status: Chronic Qualifiers: Nicotine product type: cigarettes Substance use status: in withdrawal Qualified Code(s): F17.213 - Nicotine dependence, cigarettes, with withdrawal (10) MDMA abuse Current Visit: Yes Status: Chronic (11) Nystagmus Current Visit: Yes Status: Acute Cleared for Admission [facility] - Detox or Rehab [facility] Level of Care: Medically Managed Detox Regimen/Protocol: Librium Claeared for Rehab Admission: No Breathalyzer - Breathalyzer Breathalyzer: 0 Urine Drug Screen - Test Device Lot number: [id number] Expiration date: 07/14/20 - Control Is test valid?: Yes - Results Drug screen NEGATIVE: No Urine drug screen results: THC-Marijuana, JONI-Cocaine, MET-Methamphetamine, AMP- Amphetamines, MOP-Opiates, MDMA-Ecstasy Inpatient Rehab Admission - Rehab Decision to Admit Inpatient rehab admission?: No
[2018-09-29] MEDS ORDERED: ACETAMINOPHEN 325 MG TABLET (FP) PO PRN ×2 (00:21)
[2018-09-29] MEDS ORDERED: MAG HYDROX/AL HYDROX/SIMETH 30 ML UNIT-DOSE CUP PO PRN (00:21)
[2018-09-29] MEDS ORDERED: METHOCARBAMOL 500 MG TABLET PO PRN (00:21)
[2018-09-29] MEDS ORDERED: MELATONIN 5 MG TABLETS PO PRN (00:21)
[2018-09-29] MEDS ORDERED: chlordiazePOXIDE HCL 25 MG CAPSULE PO PRN (00:21)
[2018-09-29] MEDS ORDERED: BISMUTH SUBSALICYLATE 524 MG/30 ML UD PO PRN (00:21)
[2018-09-29] MEDS ORDERED: MENTHOL/PHENOL 1 EACH UD MM PRN (00:21)
[2018-09-29] MEDS ORDERED: NICOTINE POLACRILEX 2 MG GUM BUC PRN (00:21)
[2018-09-29] MEDS ORDERED: chlordiazePOXIDE HCL 25 MG CAPSULE PO ONE (00:21)
[2018-09-29] MEDS ORDERED: MAGNESIUM CITRATE 300 ML BOTTLE PO PRN (00:21)
[2018-09-29] MEDS ORDERED: MAGNESIUM HYDROX 2400MG/30ML ORAL SUSPENSION 30 ML CUP PO PRN (00:21)
[2018-09-29] MEDS ORDERED: IBUPROFEN 400 MG TABLET (FP) PO PRN (00:21)
[2018-09-29] MEDS: chlordiazePOXIDE HCL 25 MG CAPSULE PO SCH ×3 (06:50→17:25)
--- NOTE | 2018-09-29 09:59 | PN ---
[facility] CIWA - CIWA Score Nausea/Vomitin-Mild Nausea/No Vomiting Muscle Tremors: 4-Moderate,w/Arms Extend Anxiety: 4-Mod. Anxious/Guarded Agitation: 4-Moderately Restless Paroxysmal Sweats: 1-Minimal Palms Moist Orientation: 1-Uncertain about Date Tacttile Disturbances: 1-Very Mild Itch/Numbness Auditory Disturbances: 0-None Visual Disturbances: 0-None Headache: 0-None Present CIWA-Ar Total Score: 16 BHS Progress Note (SOAP) Subjective: 38 years old male admitted on 09/28/18 for alcohol withdrawal sx positive opiate urine toxicity due to that the patient took opiate based pills x "a couple of days" prior to admission positive rpr on 06/30/18 treated with one dose of penicillin G IM on 07/01/18 Objective: 09/29/18 10:03 Vital Signs Temperature 97 F L 09/29/18 09:14 Pulse Rate 66 09/29/18 09:14 Respiratory Rate 18 09/29/18 09:14 Blood Pressure 100/64 09/29/18 09:14 O2 Sat by Pulse Oximetry (%) 09/29/18 10:03 lab pending Assessment: 09/29/18 10:03 alcohol withdrawal sx Plan: continue alcohol detox
[2018-09-29] MEDS: PRENATAL VITAMINS W/ FOLIC ACID TABLET (FP) PO SCH (10:42)
[2018-09-29 12:21] LABS: HEMATOCRIT 42.9 % (35.4-49); HEMOGLOBIN 14.9 GM/dL (11.7-16.9); MCH 31.1 pg (25.7-33.7); MCHC 34.8 g/dl (32.0-35.9); MEAN CELL VOLUME 89.4 fl (80-96); MEAN PLT VOLUME 8.6 fl (7.5-11.1); RDW 13.8 % (11.9-15.9); WHITE BLOOD COUNT 5.2 K/mm3 (4.0-10.0)
[2018-09-29 12:39] LABS: ALBUMIN 3.3 g/dl (3.4-5.0); BILIRUBIN,TOTAL 0.6 mg/dL (0.2-1); BLOOD UREA NITROGEN 15.4 mg/dL (7-18); CALCIUM 8.3 mg/dL (8.5-10.1); CREATININE 0.9 mg/dL (0.55-1.3); POTASSIUM 3.5 mmol/L (3.5-5.1); TOT PROT 5.8 g/dl (6.4-8.2)
[2018-09-29 13:28] LABS: PLATELET COUNT 185 K/MM3 (134-434)
--- NOTE | 2018-09-29 14:45 | EKG ---
Test Reason : Blood Pressure : / mmHG Vent. Rate : 050 BPM Atrial Rate : 050 BPM P-R Int : 142 ms QRS Dur : 094 ms QT Int : 466 ms P-R-T Axes : 016 075 064 degrees QTc Int : 424 ms SINUS BRADYCARDIA OTHERWISE NORMAL ECG NO PREVIOUS ECGS AVAILABLE Confirmed by Misael Leblanc MD ([id number]) on 09/29/2018 2:45:30 PM Referred By: Simran Strauss Confirmed By:Misael Leblanc MD
[2018-09-30] MEDS: THIAMINE HCL 100 MG TABLET (FP) PO SCH ×2 (00:22→22:32)
[2018-09-30] MEDS: chlordiazePOXIDE HCL 25 MG CAPSULE PO SCH ×5 (00:23→22:32)
[2018-09-30 09:33] LABS: RPR REACTIVE 1:8 (NONREACTIVE)
[2018-09-30 09:39] LABS: TREPONEMA ANTIBODY PREVIOUSLY REACTIVE (NONREACTIVE)
[2018-09-30 10:05] LABS: ALBUMIN 3.1 g/dl (3.4-5.0); BILIRUBIN,TOTAL 0.6 mg/dL (0.2-1); BLOOD UREA NITROGEN 8.2 mg/dL (7-18); CREATININE 0.8 mg/dL (0.55-1.3); POTASSIUM 3.7 mmol/L (3.5-5.1); TOT PROT 5.7 g/dl (6.4-8.2)
[2018-09-30] MEDS: PRENATAL VITAMINS W/ FOLIC ACID TABLET (FP) PO SCH (10:58)
--- NOTE | 2018-09-30 12:41 | PN ---
S CIWA - CIWA Score Nausea/Vomitin-Mild Nausea/No Vomiting Muscle Tremors: 3 Anxiety: 2 Agitation: 2 Paroxysmal Sweats: 1-Minimal Palms Moist Orientation: 1-Uncertain about Date Tacttile Disturbances: 1-Very Mild Itch/Numbness Auditory Disturbances: 0-None Visual Disturbances: 0-None Headache: 1-Very Mild CIWA-Ar Total Score: 12 BHS Progress Note (SOAP) Subjective: feeling better today less tremor mild anxious Objective: 09/30/18 12:33 Vital Signs Temperature 96.9 F L 09/30/18 09:21 Pulse Rate 68 09/30/18 09:21 Respiratory Rate 18 09/30/18 09:21 Blood Pressure 89/49 L 09/30/18 09:21 O2 Sat by Pulse Oximetry (%) Laboratory Last Values WBC 5.2 K/mm3 (4.0-10.0) 09/29/18 07:00 RBC 4.80 M/mm3 (4.00-5.60) 09/29/18 07:00 Hgb 14.9 GM/dL (11.7-16.9) 09/29/18 07:00 Hct 42.9 % (35.4-49) 09/29/18 07:00 MCV 89.4 fl (80-96) 09/29/18 07:00 MCH 31.1 pg (25.7-33.7) 09/29/18 07:00 MCHC 34.8 g/dl (32.0-35.9) 09/29/18 07:00 RDW 13.8 % (11.9-15.9) 09/29/18 07:00 Plt Count 185 K/MM3 (134-434) D 09/29/18 07:00 MPV 8.6 fl (7.5-11.1) 09/29/18 07:00 Sodium 140 mmol/L (136-145) 09/30/18 07:00 Potassium 3.7 mmol/L (3.5-5.1) 09/30/18 07:00 Chloride 105 mmol/L (98-107) 09/30/18 07:00 Carbon Dioxide 29 mmol/L (21-32) 09/30/18 07:00 Anion Gap 6 MMOL/L (8-16) L 09/30/18 07:00 BUN 8.2 mg/dL (7-18) 09/30/18 07:00 Creatinine 0.8 mg/dL (0.55-1.3) 09/30/18 07:00 Est GFR (CKD-EPI)AfAm 131.34 09/30/18 07:00 Est GFR (CKD-EPI)NonAf 113.32 09/30/18 07:00 Random Glucose 78 mg/dL (74-106) 09/30/18 07:00 Calcium 8.0 mg/dL (8.5-10.1) L 09/30/18 07:00 Total Bilirubin 0.6 mg/dL (0.2-1) 09/30/18 07:00 AST 17 U/L (15-37) 09/30/18 07:00 ALT 21 U/L (13-61) 09/30/18 07:00 Alkaline Phosphatase 75 U/L (45-117) 09/30/18 07:00 Total Protein 5.7 g/dl (6.4-8.2) L 09/30/18 07:00 Albumin 3.1 g/dl (3.4-5.0) L 09/30/18 07:00 RPR Titer Reactive 1:8 (NONREACTIVE) H D 09/29/18 07:00 T.pallidum Ab (MHA) Previously reactive (NONREACTIVE) 09/29/18 07:00 HIV 1&2 Antibody Screen Negative 09/29/18 07:00 HIV P24 Antigen Negative 09/29/18 07:00 lab noted positive syphilis treated with "three shots" last shot "few months ago" lab reviewed titer dropped from 128 to 8 09/30/18 12:42 Assessment: 09/30/18 12:42 alcohol withdrawal sx Plan: continue alcohol detox
[2018-10-01] MEDS ORDERED: chlordiazePOXIDE HCL 10 MG CAPSULE PO PRN
[2018-10-01] MEDS: chlordiazePOXIDE HCL 10 MG CAPSULE PO SCH ×4 (05:25→22:22)
[2018-10-01] MEDS: PRENATAL VITAMINS W/ FOLIC ACID TABLET (FP) PO SCH (10:37)
--- NOTE | 2018-10-01 12:19 | PN ---
S CIWA - CIWA Score Nausea/Vomitin-No Nausea/No Vomiting Muscle Tremors: 1-None Visible, but [place] Anxiety: 3 Agitation: 1-Slight > Activity Paroxysmal Sweats: 1-Minimal Palms Moist Orientation: 0-Oriented Tacttile Disturbances: 1-Very Mild Itch/Numbness Auditory Disturbances: 0-None Visual Disturbances: 0-None Headache: 1-Very Mild CIWA-Ar Total Score: 8 BHS Progress Note (SOAP) Subjective: interrupted sleep, chills, body aches Objective: 10/01/18 12:14 Vital Signs Temperature 96.4 F L 10/01/18 09:17 Pulse Rate 66 10/01/18 09:17 Respiratory Rate 16 10/01/18 09:17 Blood Pressure 94/58 L 10/01/18 09:17 O2 Sat by Pulse Oximetry (%) Laboratory Last Values WBC 5.2 K/mm3 (4.0-10.0) 09/29/18 07:00 RBC 4.80 M/mm3 (4.00-5.60) 09/29/18 07:00 Hgb 14.9 GM/dL (11.7-16.9) 09/29/18 07:00 Hct 42.9 % (35.4-49) 09/29/18 07:00 MCV 89.4 fl (80-96) 09/29/18 07:00 MCH 31.1 pg (25.7-33.7) 09/29/18 07:00 MCHC 34.8 g/dl (32.0-35.9) 09/29/18 07:00 RDW 13.8 % (11.9-15.9) 09/29/18 07:00 Plt Count 185 K/MM3 (134-434) D 09/29/18 07:00 MPV 8.6 fl (7.5-11.1) 09/29/18 07:00 Sodium 140 mmol/L (136-145) 09/30/18 07:00 Potassium 3.7 mmol/L (3.5-5.1) 09/30/18 07:00 Chloride 105 mmol/L (98-107) 09/30/18 07:00 Carbon Dioxide 29 mmol/L (21-32) 09/30/18 07:00 Anion Gap 6 MMOL/L (8-16) L 09/30/18 07:00 BUN 8.2 mg/dL (7-18) 09/30/18 07:00 Creatinine 0.8 mg/dL (0.55-1.3) 09/30/18 07:00 Est GFR (CKD-EPI)AfAm 131.34 09/30/18 07:00 Est GFR (CKD-EPI)NonAf 113.32 09/30/18 07:00 Random Glucose 78 mg/dL (74-106) 09/30/18 07:00 Calcium 8.0 mg/dL (8.5-10.1) L 09/30/18 07:00 Total Bilirubin 0.6 mg/dL (0.2-1) 09/30/18 07:00 AST 17 U/L (15-37) 09/30/18 07:00 ALT 21 U/L (13-61) 09/30/18 07:00 Alkaline Phosphatase 75 U/L (45-117) 09/30/18 07:00 Total Protein 5.7 g/dl (6.4-8.2) L 09/30/18 07:00 Albumin 3.1 g/dl (3.4-5.0) L 09/30/18 07:00 RPR Titer Reactive 1:8 (NONREACTIVE) H D 09/29/18 07:00 T.pallidum Ab (MHA) Previously reactive (NONREACTIVE) 09/29/18 07:00 HIV 1&2 Antibody Screen Negative 09/29/18 07:00 HIV P24 Antigen Negative 09/29/18 07:00 labs reviewed Assessment: 10/01/18 12:15 Patient is A Ox3 no acute distress Full ROM ambulating in the unit Plan: increase PO fluids continue detox continue to monitor
[2018-10-01] MEDS: THIAMINE HCL 100 MG TABLET (FP) PO SCH (22:22)
[2018-10-02] MEDS ORDERED: chlordiazePOXIDE HCL 10 MG CAPSULE PO SCH (05:00)
[2018-10-02 09:30] VITALS: BP 99/64; PULSE 62; TEMP 97.1
[2018-10-02] MEDS: PRENATAL VITAMINS W/ FOLIC ACID TABLET (FP) PO SCH (10:33)
--- NOTE | 2018-10-02 18:13 | DS ---
[facility] Detox Discharge Summary Admission Date: 09/29/18 Discharge Date: 10/02/18 - History Present History: Alcohol Dependence, Cannabis Dependence, Cocaine Dependence Additional Comments: PATIENT DENIES CURRENT WITHDRAWAL / DETOX SYMPTOMS AND REPORTS THAT HE FEELS WELL OVERALL AT TIME OF DISCHARGE FROM DETOX UNIT. PATIENT GOING TO [facility] ([place], [place]) FOR AFTERCARE. PATIENT WAS DISCHARGED FROM DETOX UNIT IN STABLE MEDICAL CONDITION. Pertinent Past History: History Of Syphilis, Methamphetamine Dependence, Nicotine Dependence, History Of Positive PPD, MDMA Abuse, Nystagmus. - Physical Exam Results Vital Signs: Vital Signs Temperature 97.1 F L 10/02/18 09:29 Pulse Rate 62 10/02/18 09:29 Respiratory Rate 16 10/02/18 09:29 Blood Pressure 99/64 10/02/18 09:29 O2 Sat by Pulse Oximetry (%) Pertinent Admission Physical Exam Findings: WITHDRAWAL SYMPTOMS. Laboratory Tests 09/29/18 09/29/18 09/29/18 07:00 07:00 07:00 WBC 5.2 RBC 4.80 Hgb 14.9 Hct 42.9 MCV 89.4 MCH 31.1 MCHC 34.8 RDW 13.8 Plt Count 185 D MPV 8.6 Sodium Potassium Chloride Carbon Dioxide Anion Gap BUN Creatinine Est GFR (CKD-EPI)AfAm Est GFR (CKD-EPI)NonAf Random Glucose Calcium Total Bilirubin AST ALT Alkaline Phosphatase Total Protein Albumin RPR Titer Reactive 1:8 H D T.pallidum Ab (MHA) Previously reactive HIV 1&2 Antibody Screen Negative HIV P24 Antigen Negative 09/29/18 09/30/18 07:00 07:00 WBC RBC Hgb Hct MCV MCH MCHC RDW Plt Count MPV Sodium 139 140 Potassium 3.5 3.7 Chloride 104 105 Carbon Dioxide 31 29 Anion Gap 3 L 6 L BUN 15.4 8.2 Creatinine 0.9 0.8 Est GFR (CKD-EPI)AfAm 125.13 131.34 Est GFR (CKD-EPI)NonAf 107.97 113.32 Random Glucose 91 78 Calcium 8.3 L 8.0 L Total Bilirubin 0.6 0.6 AST 18 17 ALT 24 21 Alkaline Phosphatase 87 75 Total Protein 5.8 L 5.7 L Albumin 3.3 L 3.1 L RPR Titer T.pallidum Ab (MHA) HIV 1&2 Antibody Screen HIV P24 Antigen LABS NOTED. - Treatment Hospital Course: Detox Protocol Followed, Detoxed Safely, Responded well, Discharged Condition Good Patient has Accepted a Rehab Referral to: PT. [facility]ING [facility] ([facility] - Medication Discharge Medications: Ambulatory Orders NK [No Known Home Medication] 02/25/18 - Diagnosis (1) Alcohol dependence with uncomplicated withdrawal Status: Acute (2) Nystagmus Status: Acute (3) Opiate abuse, episodic Status: Acute (4) At risk for dehydration due to poor fluid intake Status: Chronic (5) Cannabis dependence, uncomplicated Status: Chronic (6) Cocaine dependence Status: Chronic Qualifiers: Substance use status: uncomplicated Qualified Code(s): F14.20 - Cocaine dependence, uncomplicated (7) History of positive PPD Status: Chronic (8) History of syphilis Status: Chronic (9) MDMA abuse Status: Chronic (10) Methamphetamine dependence, continuous Status: Chronic (11) Nicotine dependence Status: Chronic Qualifiers: Nicotine product type: cigarettes Substance use status: in withdrawal Qualified Code(s): F17.213 - Nicotine dependence, cigarettes, with withdrawal - AMA Did Patient Leave Against Medical Advice: No
[2018-10-03] MEDS ORDERED: chlordiazePOXIDE HCL 10 MG CAPSULE PO ONE (05:00)
== END 2018-10-02 12:09 | disposition home or self-care (01) | DRG 773 ==
LOC: YASAS 16:28 → Y3N 09-29 02:39
PROVIDERS: ADMIT Surgery; ATTEND Surgery
PROC: HZ2ZZZZ Detoxification Services for Substance Abuse Treatment (ICD-10-PCS; principal; 2018-09-29)
DX: F10.230 Alcohol dependence with withdrawal, uncomplicated (principal); F14.20 Cocaine dependence, uncomplicated; F12.20 Cannabis dependence, uncomplicated; F11.90 Opioid use, unspecified, uncomplicated; F16.10 Hallucinogen abuse, uncomplicated; F15.20 Other stimulant dependence, uncomplicated; F17.213 Nicotine dependence, cigarettes, with withdrawal; H55.00 Unspecified nystagmus; R63.8 Other symptoms and signs concerning food and fluid intake; R76.11 Nonspecific reaction to tuberculin skin test without active tuberculosis; I49.9 Cardiac arrhythmia, unspecified; Z87.438 Personal history of other diseases of male genital organs; Z59.0 Homelessness
CPT/HCPCS: 36415; 80053; 85027; 86593; 86780; 87389; 93005; 93010